=== PATIENT | female | born 1950 | race Caucasian/White ===

== ENCOUNTER 2019-04-05 17:30 | Emergency (ER) | payer MEDICARE, BC ==
--- OUTSIDE RECORDS SUMMARY | 2019-04-05 17:38 | XMS REPORT | Summary of Care ---
:1950 Author Organization [facility] Address [address] [place] [address] Care Team Providers Name Role Phone Adrienne Simon Primary Care Provider Reason for Visit Reason Comments Follow-up No Labs Encounter Details Date Type Department Care Team Description 02/26/2019 Office Visit [facility]ava, Invasive ductal carcinoma of left breast (Primary Dx); Oncology [facility] Agrawal Osteopenia of multiple sites; [address] Osteoporosis of forearm [place] [address] [place] [address] [phone] Allergies Active Allergy Reactions Severity Noted Date Comments Moxatag GI Reaction 05/14/2013 Severe vomiting Bee Sting Swelling Medium 02/26/2019 Red Yeast Rice Extract Hives 05/16/2016 documented as of this encounter (statuses as of 02/26/2019) Medications Medication Sig Dispensed Refills Start Date End Date Status [place]-3 Fatty Acids (FISH Take by 0 Active OIL) 1000 MG Oral Cap mouth. Calcium Carbonate-Vitamin Take by mouth 0 Active D (CALTRATE 600+D PO) FOUR TIMES DAILY. Cholecalciferol (VITAMIN Take by mouth 0 Active D) 400 UNITS Oral Cap DAILY. Garlic 100 MG Oral Tab Take by mouth 0 Active DAILY. ascorbic acid 500 MG Oral Take 500 mg by 0 Active Tab mouth DAILY. amLodipine (NORVASC) 5 MG Take 1 Tab by 90 Tab 3 10/16/2018 Active Oral TabIndications: mouth DAILY. Essential hypertension bisoprolol-hydrochlorothia Take 1 Tab by 90 Tab 3 10/30/2018 Active zide (ZIAC) 5-6.25 MG Oral mouth DAILY. TabIndications: Essential hypertension lisinopril (PRINIVIL, Take 1 Tab by 90 Tab 3 10/30/2018 Active ZESTRIL) 40 MG Oral Tab mouth DAILY. letrozole (FEMARA) 2.5 MG Take 1 Tab by 90 Tab 3 11/09/2018 Active Oral Tab mouth DAILY. hydrochlorothiazide (HCTZ, take 1 capsule 90 Cap 3 12/18/2018 Active ORETIC) 12.5 MG Oral by mouth once CapIndications: Essential daily hypertension documented as of this encounter (statuses as of 02/26/2019) Active Problems Problem Noted Date Invasive ductal carcinoma of left breast 12/13/2015 Overview: Surgery - Radiation - Dr Goddard / [place] - / will follow up with primary care until 5 years- BMI 28.0-28.9,adult 09/14/2014 Overview: This patient's BMI has been calculated and is above average, and BMI management plan is completed. General patient education discussion including: obesity- related excess mortality and is managed by . 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 S/P colonoscopy with polypectomy 08/24/2008 Overview: 03/2004, Dr. Thmoas. Next recommended 3 years. No f/u. Poisoning, glutethimide group documented as of this encounter (statuses as of 02/26/2019) Immunizations Name Administration Dates Next Due Adacel TdaP 03/23/2007 PNEUMOCOCCAL POLYSACCHARIDE VACCINE 10/09/2016 Pneumococcal Conjugate(13 Valent) 09/14/2014 documented as of this encounter Social History Tobacco Use Types Packs/Day Years Used Date Former Smoker Cigarettes 10 Smokeless Tobacco: Never Used Alcohol Use Drinks/Week oz/Week Comments No Sex Assigned at Date Recorded Not on file Job Start Date Occupation Industry Not on file Not on file Not on file Travel History Travel Start Travel End No recent travel history available. documented as of this encounter Last Filed Vital Signs Vital Sign Reading Time Taken Comments Blood Pressure 168/97 02/26/2019 11:01 AM EDT Pulse 66 02/26/2019 11:01 AM EDT Temperature 36.4 02/26/2019 10:58 AM EDT C (97.6 F) Respiratory Rate 14 02/26/2019 10:58 AM EDT Oxygen Saturation - - Inhaled Oxygen Concentration - - Weight 70.5 kg (155 lb 6.4 oz) 02/26/2019 10:58 AM EDT Height 160 cm (5' 3") 02/26/2019 10:58 AM EDT Body Mass Index 27.53 02/26/2019 10:58 AM EDT documented in this encounter Patient Instructions Patient InstructionsTanja Larsen NP - 02/26/2019 11:00 AM EDTReturn appointments timing: - March 2020 with CMP and office visit. No Port/PICC Patient Instructions: - Continue letrozole as prescribed. - Continue calcium and vitamin D supplement. Contact office with any changes or questions: During Business hours: [place] [phone] [place] [phone] After hours/holidays/weekends Call [facility] computer numerical control operator [phone] and ask for oncology salesperson women's dresses If you have an acute emergency call 911 documented in this encounter Progress Notes Tanja Larsen NP - 02/26/2019 11:00 AM EDT 02/26/2019 PATIENT: Ximena Clifton : 1950 Chief Complaint: Subjective HPI: Ximena Clifton is a 68-y.o. female with history of left breast invasive ductal carcinoma currently on letrozole presenting today for follow-up. She was last seen in our clinic in August 2016. That time she was discharged to follow-up with surgery center in [place]. He was referred back to our office by Dr Kenney as there was concern for change in her most recent bone density. Overall she reports that she is feeling well and doing well. She has been on the letrozole since January 2016. She denies recurrent headaches, fevers, night sweats, SOB, chest pain, abdominal pain,change in bowel or bladder function, abnormal bleeding/bruising, swollen or painful lymph nodes, bone pain , fatigue. Appetite is good. Oncologic diagnosis: Breast invasive ductal carcinoma Date of diagnosis: 11/06/2015 Date of diagnosis: Stage IA (pT1a pN0 (i-) Del Cid Features: - ER + 100% - DC + 97% - HER-2 negative - 0/1 SLN Treatment to date: -Left partial mastectomy and sentinel lymph node biopsy on 12/13/2015. -Adjuvant radiation from 01/15/2016 07/04/[address] Goddard at [facility]. -Given endocrine therapy with letrozole from 02/14/16 to present. Past Medical History: Diagnosis Date Elevated HDL 08/24/2008 History of breast surgery left breast ca/pt had lumpectomy with RT History of Right Breast Lump 08/24/2008 S/P biopsy, 1994, benign. Hypertension 08/24/2008 Invasive ductal carcinoma of left breast (HCC) 12/13/2015 [place] Poisoning, glutethimide group Postmenopausal S/P colonoscopy with polypectomy 08/24/200803/2004, Dr. Thomas. Next recommended 3 years. No f/u. Past Surgical History: Procedure Laterality Date CT LOWER EXTREMITY TIB FIB RIGHT DC BIOPSY OF BREAST, INCISIONAL 12/13/2015 Outpatient Medications as of 02/26/2019 Medication Sig Dispense Refill amLodipine (NORVASC) 5 MG Oral Tab Take 1 Tab by mouth DAILY. 90 Tab 3 ascorbic acid 500 MG Oral Tab Take 500 mg by mouth DAILY. bisoprolol-hydrochlorothiazide (ZIAC) 5-6.25 MG Oral Tab Take 1 Tab by mouth DAILY. 90 Tab 3 Calcium Carbonate-Vitamin D (CALTRATE 600+D PO) Take by mouth FOUR TIMES DAILY. Cholecalciferol (VITAMIN D) 400 UNITS Oral Cap Take by mouth DAILY. Garlic 100 MG Oral Tab Take by mouth DAILY. hydrochlorothiazide (HCTZ, ORETIC) 12.5 MG Oral Cap take 1 capsule by mouth once daily 90 Cap3 letrozole (FEMARA) 2.5 MG Oral Tab Take 1 Tab by mouth DAILY. 90 Tab 3 lisinopril (PRINIVIL, ZESTRIL) 40 MG Oral Tab Take 1 Tab by mouth DAILY. 90 Tab 3 [place]-3 Fatty Acids (FISH OIL) 1000 MG Oral Cap Take by mouth. No current facility-administered medications on file as of 02/26/2019. Allergies Allergen Reactions Bee Sting Swelling Amoxicillin [Moxatag] GI Reaction Severe vomiting Red Yeast Rice Extract Hives Social History Socioeconomic History Marital status: Spouse name: Not on file Number of children: Not on file Years of education: Not on file Highest education level: Not on file Occupational History Not on file Social Needs Financial resource strain: Not on file Food insecurity: Worry: Not on file Inability: Not on file Transportation needs: Medical: Not on file Non-medical: Not on file Tobacco Use Smoking status: Former Smoker Years: 10. Types: Cigarettes Smokeless tobacco: Never Used Substance and Sexual Activity Alcohol use: No Drug use: No Sexual activity: Yes Partners: Male Lifestyle Physical activity: Days per week: Not on file Minutes per session: Not on file Stress: Not on file Relationships Social connections: Talks on phone: Not on file Gets together: Not on file Attends episcopalian service: Not on file Active member of club or organization: Not on file Attends meetings of clubs or organizations: Not on file Relationship status: Not on file Intimate partner violence: Fear of current or ex partner: Not on file Emotionally abused: Not on file Physically abused: Not on file Forced sexual activity: Not on file Other Topics Concern Not on file Social History Narrative 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 Objective Vitals: 02/26/19 1101 BP: (!) 168/97 Pulse: 66 Resp: Temp: GENERAL: well-nourished, no acute distress. Ambulatory. ORAL CAVITY: mucous membranes moist without lesions. NECK: supple, no JVD. No thyromegaly. CHEST: clear to auscultation bilaterally, no accessory muscle use. CARDIAC: regular rate and rhythm. ABDOMEN: soft, nondistended, nontender. Normoactive bowel sounds. No organomegaly. NEURO: alert and oriented x3. No gross deficits. EXTREMITIES: No ecchymosis, or pedal edema. LYMPH: cervical and supraclavicular lymph nodes non-palpable. ECOG PS: 0 PAIN LEVEL: 0/10 Laboratory Results: Lab Results Component Value Date WBC 5.86 10/16/2018 RBC 4.41 10/16/2018 HGB 13.5 10/16/2018 HCT 42.1 10/16/2018 MCV 95.5 (H) 10/16/2018 MCH 30.6 10/16/2018 MCHC 32.1 (L) 10/16/2018 PLAT 371 (H) 10/16/2018 MPV 9.8 10/16/2018 RDW 12.5 10/16/2018 LYMPHOCYTEPE 19.1 (L) 10/16/2018 MONOCYTEPE 11.6 10/16/2018 EOSINOPHILPE 0.7 10/16/2018 BASOPHILPE 0.7 10/16/2018 NEUTROPHILAB 3.95 10/16/2018 LYMPHOCYTEAB 1.12 (L) 10/16/2018 MONOCYTEAB 0.68 10/16/2018 EOSINOPHILAB 0.04 10/16/2018 BASOPHILAB 0.04 10/16/2018 Lab Results Component Value Date NA 131 (L) 10/16/2018 K 4.2 10/16/2018 CL 93 (L) 10/16/2018 CO2 25 10/16/2018 GLUCOSE 113 (H) 10/16/2018 BUN 17 10/16/2018 CREATININE 0.6 (L) 10/16/2018 CALCIUM 9.8 10/16/2018 TP 8.4 (H) 10/16/2018 ALBUMIN 4.7 10/16/2018 AST 27 10/16/2018 ALT 26 10/16/2018 ALK 80 10/16/2018 TBILI 0.4 10/16/2018 EGFR >60 10/16/2018 11/05/18 Bilateral Mammogram: Birads 2. 7/02/11 Dexa scan demonstrates normal bone density to the lumbar spine. Left femur with osteopenia, total - 1.5. Right femur borderline at - 1.1. Left forearm radius demonstrates osteoporosis. Assessment Ximena Clifton is a 68-y.o. female with history of left breast invasive ductal carcinoma currently on treatment with anastrozole presenting today for follow up and to discuss bone density results. At this point in review her lumbar spine, left femur, and right femur have remained fairly stable ondexa scan imaging. The only thing demonstrating concern for osteoporosis and worsening bone densityof the left forearm radius. At this point she is taking calcium and vitamin D supplementation and reports that she is getting weightbearing exercises in 2 days a week. She is on the letrozole and hasbeen on that since January 2016. At this point would be looking at continuing that to at least January 2021. Will need to further discuss whether or not we extend her adjuvant endocrine therapy to10 years, given that some people have been show to benefit from taking therapy for 10 years vs 5 years. I discussed bone density options with her to include Fosamax, Prolia, and Reclast. At this point taking bone directed therapy is not something that she is interested in, especially given that for the most part things have remained stable and she is concerned for side effects associated with these therapy options. I have encouraged her to continue calcium and vitamin D supplementation with weightbearing exercises. Repeat bone density scan in the next 1 to 2 years. Her next mammogram is scheduled in October 2019 with follow-up examination of breast surgery at that time. We should see her back next year, in March 2020 , for follow-up. Will look to order bone density scan at that time and further discuss length of time for the adjuvant endocrine therapy Plan -Continue calcium and vitamin D supplementation. -To continue weightbearing exercises. -We will have her return here in March 2020 for CMP and follow-up office visit. -Follow-up with breast surgery with mammogram in October as scheduled. -Advised to call with any questions or concerns. All questions were addressed and answered to satisfaction of the patient. Plan discussed with and agreed upon by patient. Tanja Larsen NP 02/26/2019 16:46 [facility] documented in this encounter Plan of Treatment Date Type Specialty Care Team Description 10/19/2019 Office Visit Internal Medicine Adrienne Simon MD [address] [place] [address] [phone] 11/09/2019 Ancillary Procedure Radiology 11/15/2019 Office Visit General Surgery Jennifer Kenney MD [address] [place] [address] [phone] Health Maintenance Due Date Last Done Comments ZOSTER IMMUNIZATION SERIES 1998 (1 of 2) MEDICARE ANNUAL WELLNESS 10/09/2017 10/09/2016, 10/03/2015, VISIT 09/14/2014 COLONOSCOPY SCREENING 09/21/2018 09/21/2013, 03/29/2004 PAP SMEAR 10/09/2018 10/09/2016, 09/14/2014, 04/09/2011, Additional history exists DEPRESSION SCREENING 10/17/2019 10/16/2018 DIABETES SCREENING 10/17/2019 10/16/2018, 10/15/2017, 11/08/2016, Additional history exists FALL RISK ASSESSMENT 10/17/2019 10/16/2018, 10/16/2018 LIPID DISORDER SCREENING 10/17/2019 10/16/2018, 10/15/2017, 05/09/2011, Additional history exists MAMMOGRAM (SCREENING) 11/06/2019 11/05/2018, 10/28/2017, 10/07/2016, Additional history exists OSTEOPOROSIS SCREENING 12/01/2028 12/01/2018, 01/10/2016, 10/25/2013, Additional history exists HPV IMMUNIZATION SERIES Aged Out No longer eligible based on patient's age to complete this topic MENINGOCOCCAL VACCINE IMM Aged Out No longer eligible based on patient's age to complete this topic documented as of this encounter Goals Goal Patient Goal Associated Recent Patient-Stated? Author Type Problems Progress Blood Pressure Blood Pressure Hypertension 168/97 No [place], < 140/90 (02/26/2019 MD Adrienne 11:01 AM EDT) Note: Hypertension Care Plan Based on the patient's clinical history and according to JNC 8 guidelines target blood pressure goal is less than 140/90. Based on the patient's last blood pressure of BP: 142/84 mmHg the patient is at at goal. As your provider, it is important that I advise you regarding: your current medications and help you with any challenges you may face taking your medications as directed (ex. instructions, cost, side effects, and interactions). Important lifestyle changes: exercise, weight reduction, diet, dietary sodium reduction and medication compliance your clinical goals and how you can achieve success: weight reduction, exercise plan and diet improvements medication management: adjusted medications as appropriate patient education/self-management tools provided: Yes To successfully manage my Hypertension I will: monitor my blood pressure daily, understanding that my goal is less than 140/ 90 per my healthcare provider's recommendation. I will schedule an appointment with my provider if consistent abnormal readings greater than 160/100. take medications every day as prescribed by my healthcare provider and if unable to take them I will discuss with my provider. monitor for symptoms of chest pain, chest tightness/pressure, irregular heartbeat, persistent dizziness, radiating arm pain, and neck or jaw pain. If any of these symptoms are noticed I will seek medical attention immediately by calling 911 exercise/walk 45 minutes 4 day(s) per week. If I experience chest pain, chest tightness, or shortness of breath, I will seek medical attention immediately. follow a diet rich in fruits, vegetables, and low-fat dairy products with reduced content of saturated & total fat. I will reduce my sodium intake daily. An example is the DASH diet. To obtain more information please refer to the DASH Eating Plan listed in Educational Resources. record my blood pressure results. Zoran is safe and secure way for you to do this in your medical record online. try to obtain an ideal body weight. My recent weight was Weight: 159 lb ( 72.122 kg). My weight loss goal for my next office visit is 5-7 lbs . limit alcohol consumption. For men two drinks per day and women one drink per day. if currently smoking, will discuss how to quit smoking with my healthcare provider and work towards quitting. Educational Resources: National Heart, Lung, & Blood [place] http://nhlbi.nih.gov/hbp/index.html The DASH Diet Eating Plan http://www.nhlbi.nih.gov/health/health-topics/ topics/dash/ Academy of Nutrition & DIetetics http://eatright.org National Smoking Cessation Site http://smokefree.gov Blood Pressure < 150/90 Blood Pressure 168/97 (02/26/2019 11:01 Adrienne Arrieta MD AM EDT) Note: This is an individualized treatment (blood pressure) goal for Ximena Clifton: Displayed above (on the left) is your goal for blood pressure control. Your most recent blood pressure is also shown above, on the right. You should try to achieve blood pressures that are lower than your goal listed above (on the left). Take all prescribed medications as directed Self-management Adrienne Arrieta MD Note: This is an individualized self-management goal for Ximena Villasenor Clifton: Please take all prescribed medications as directed. 1. Do not skip doses. If you cannot afford your medications, talk with your doctor. 2. Use a pill reminder system such as a pill box if needed. Your pharmacist can help you with this. 3. Contact your Pharmacy 5 days before your medication runs out. If you cannot take your medications for any reasons, talk with your doctor. 4. Please bring all of your medication bottles and inhalers (or a list of all your medications/inhalers) with you to every visit. Potential barriers to meeting all of your care plan goals will continue to be addressed on an ongoing basis. documented as of this encounter Results Not on filedocumented in this encounter Visit Diagnoses Diagnosis Invasive ductal carcinoma of left breast - Primary Osteopenia of multiple sites Osteoporosis of forearm documented in this encounter Insurance Payer Benefit Plan / Subscriber ID Effective Dates Phone Address Type Group MEDICARE MEDICARE PART A & xxxxxxxxxxx 2013-Present Medicare B [employer] xxxxxxxxxxxx 2013-Present [employer] Guarantor Name Account Type Relation to Date of Phone Billing Patient Address Ximena Clifton Personal/Family [address] [facility] [place] (Home) [place] [phone] [place], [place] (Work) [id number] documented as of this encounter
[2019-04-05 17:46] VITALS: BP 166/100
--- NOTE | 2019-04-05 18:14 | UC ---
Bite Injury/Animal HPI - HPI Summary HPI Summary: 68 y/o female presents to the urgent care c/o dog bite on her left palm hand at the [facility] today around 1615pm. 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 She was taken a pittbull to walk when an outside keo came close and the dog redirected towards her and bit her left hand. Dog is UTD in all immunizations and she also notified the Health department who advised her to come here. Pt states she irrigated her hand well and bleeding stopped w / pressure. Pain is 1/10 at touch and she can move her hand and fingers w/o any difficulty. Pt is not UTD w/ the tetanus vaccine. Pt denies fever, SOB, dizziness, chest pain, swelling, abdominal pain, N/V/D. - History of Current Complaint Chief Complaint: UCBiteInjury Stated Complaint: DOG BITE Time Seen by Provider: 04/05/19 18:07 Hx Obtained From: Patient ?: No - menopausal Severity Currently: Moderate Severity Initially: Moderate Pain Intensity: 1 Pain Scale Used: 0-10 Numeric Onset/Duration: Sudden Onset, Lasting Hours - 2 hrs ago, Still Present Type of Bite: Animal - dog bite from [facility] Has Animal Been Immunized?: Yes Character: Puncture - dorsal side of the left hand, Abrasion/Laceration - palmar side of the left hand over the thenar eminence Aggravating Factor(s): Other - touch Alleviating Factor(s): Rest Associated Signs And Symptoms: Positive: Negative. Negative: Fever, Lymphadenopathy, Numbness/Tingling, Limited ROM Hx of Bite: Provoked by: - Pt was walking the dog and a outside keo came close and the dog redirected towars her and bit her left hand Animal Available for Observation: Yes Animal Control Notified: Yes - Risk Factors Infection/Sepsis Risk Factors: Negative - Allergies/Home Medications Allergies/Adverse Reactions: Allergies Allergy/AdvReac Type Severity Reaction Status Date / Time amoxicillin Allergy Diarrhea Verified 04/05/19 17:46 RED RICE YEAST Allergy Severe Hives Uncoded 05/02/12 14:49 PMH/Surg Hx/FS Hx/Imm Hx Previously Healthy: Yes Cardiovascular History: Hypertension - Surgical History Surgical History: None Surgery Procedure, Year, and Place: lumpectomy. tibial plateau right - Family History Known Family History: Positive: Diabetes - Social History Occupation: Retired Lives: With Family Alcohol Use: Daily Substance Use Type: None Smoking Status (MU): Never Smoked Tobacco When Did the Patient Quit Smoking/Using Tobacco: 40 years ago - Immunization History Hx Tetanus, Diphtheria Vaccination: No - Pt can't recall when was the last Tetanus vaccine Review of Systems All Other Systems Reviewed And Are Negative: Yes Constitutional: Positive: Negative Skin: Positive: Other - left hand dog bite about 2 hrs ago Eyes: Positive: Negative ENT: Positive: Negative Respiratory: Positive: Negative Cardiovascular: Positive: Negative Gastrointestinal: Positive: Negative Genitourinary: Positive: Negative Motor: Positive: Negative Neurovascular: Positive: Negative Musculoskeletal: Positive: Other: - left hand pain s/p dog bite Neurological: Positive: Negative Psychological: Positive: Negative Is Patient Immunocompromised?: No Physical Exam - Summary Physical Exam Summary: Vital Signs Reviewed: Yes General: well developed, well nourished female sitting in the examining table w/ o any apparent distress Eye Exam: Normal Eyes: Positive: Conjunctiva Clear - PERRLA, EOMI, fundi grossly normal ENT: Positive: Normal ENT inspection, Hearing grossly normal, Pharynx normal, TMs normal Neck: Positive: Supple, Nontender, No Lymphadenopathy Respiratory: Positive: Chest non-tender, Lungs clear, Normal breath sounds, No respiratory distress Cardiovascular: Positive: RRR, No Murmur, Pulses Normal, Brisk Capillary Refill Abdomen Description: Positive: Nontender, No Organomegaly, Soft. Negative: CVA Tenderness (R), CVA Tenderness (L) Bowel Sounds: Positive: Present Musculoskeletal: Positive: Strength Intact, ROM Intact, No Edema Neurological: Positive: Alert, Muscle Tone Normal Psychological Exam: Normal Skin: Positive: Palmar side of left hand w/ an 3 irregular linear superficial skin avulsions and abrasions over the thenar eminence about 2.5cm in size, bleeding, no foreign body observed. One puncture wound on the dorsal side of the mid 4th metacarpal w/mild tenderness to palpation and swelling, no ecchymosis around hand. FROM of RT hand and wrist, sensation intact, capillary refill brisk, and pulses WNL. Triage Information Reviewed: Yes Vital Signs: Initial Vital Signs Temp 99.7 F 04/05/19 17:38 Pulse 105 04/05/19 17:38 Resp 16 04/05/19 17:38 BP 166/100 04/05/19 17:38 Pulse Ox 100 04/05/19 17:38 Bite Injury Course/Dx - Course Course Of Treatment: 68 y/o female presents to the urgent care c/o dog bite on her left palm hand at the [facility] today around 1615pm. 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 She was taken a pittbull to walk when an outside keo came close and the dog redirected towards her and bit her left hand. Dog is UTD in all immunizations and she also notified the Health department who advised her to come here. Pt states she irrigated her hand well and bleeding stopped w / pressure. Pain is 4/10 at touch and she can move her hand and fingers w/o any difficulty. Pt is not UTD w/ the tetanus vaccine. Pt denies fever, SOB, dizziness, chest pain, swelling, abdominal pain, N/V/D. Hx obtained. Pt is hemodynamically, A&OX3, vitals: WNL. Pt w/ a Palmar side of left hand w/ an 3 irregular linear superficial skin avulsions and abrasions over the thenar eminence about 2.5cm in size, bleeding, no foreign body observed. One puncture wound on the dorsal side of the mid 4th metacarpal w/mild tenderness to palpation and swelling, no ecchymosis around hand. FROM of RT hand and wrist, sensation intact, capillary refill brisk, and pulses WNL on examination. Pt is hemodynamically stable, A&OX3,. Left hadn X-ray ordered to r/o any FB or abnormality, Impression: Negative for fracture or dislocation or FB as per DR Adamson. Pt told final radiolgy reports will be done tomorrow if there is any abnormality. LACERATION PROCEDURE NOTE: . Copious irrigation was done with saline and the wound explored. There was no FB or deep structure injury noted. wound cleaned w/ Iodine swabs. skin avulsions put in placed and Bacitracin oint applied over wounds and dressed w/ sterile gauze.The Pt tolerated the procedure well without adverse effects. Neurovascular intact and FROM of left hand. Tdap ordered and applied by nurse. Pt is allergic to Amoxiccillin, Pt Rx Clindamycin PO and Doxycycline PO as directed below. Pt advised if any signs of infection develop to go immediately to the ER for further management and treatment.Pt's BP is elevated today advised to decrease salt in diet, monitor BP and f/u with PCP for further management. Pt understood and agreed and left the clinic ambulating A&Ox3. - Differential Dx/Diagnosis Differential Diagnosis/HQI/PQRI: Cellulitis, Laceration, Puncture, Rabies Exposure, Superficial Infection, Deep Space Infection, Tenosynovitis Provider Diagnosis: Open wound of left hand due to dog bite, Uncontrolled hypertension Discharge ED - Sign-Out/Discharge Documenting (check all that apply): Patient Departure - D/C home All imaging exams completed and their final reports reviewed: No - Discharge Plan Condition: Stable Disposition: HOME Prescriptions: Bacitracin OINTMENT* 1 applic TOPICAL BID #1 tube Clindamycin Cap(NF) [Clindamycin Cap 300 mg Cap(NF)] 300 mg PO Q6H #40 cap DOXYcycline CAP(*) [DOXYcycline 100MG CAP(*)] 100 mg PO BID #20 cap Patient Education Materials: Animal Bite (ED), Puncture Wound (DC) Referrals: Adrienne Simon MD [Primary Care Provider] - 3 Days Additional Instructions: 1-Please take full course of both antibiotics as directed to prevent infection form the dog bite. Take yogurt w/ probiotics or Culturelle to protect your GI system. 2-apply Bacitracin topical antibiotic over the wound. Keep wound clean and dry and apply ice to decrease swelling and keel hand elevated w/ the shoulder sling. Please apply Bacitracin oint as directed to prevent infection 3- You were given a booster of Tetanus vaccine today 4-Take Ibuprofen or Tylenol PO q6-8hrs prn for pain or swelling. 5- If you develop fever or severe redness around your hand despite antibiotics please go immediately to the ER for further management. Your BP is elevated today. Please take your BP medications and decrease salt in your diet, monitor BP and if it continues to be elevated please f/u with your PCP for further management. If you develop chest pain, dizziness, visual disturbances, SOB, or severe GUERRA please go immediately to the ER for further management - Billing Disposition and Condition Condition: STABLE Disposition: Home - Attestation Statements Provider Attestation: This patient was not seen by me I was available for consult Chart reviewed DANIEL
[2019-04-05] MEDS ORDERED: Tetan/Diph/Pertus SYR(Tdap)* 0.5 ML SYR(BOOSTRIX) use SYR contains LATEX IM ONE (18:24)
--- NOTE | 2019-04-06 14:54 | UC ---
- Progress Note Progress Note: RADIOLOGY REPORT REVIEWED. SOFT TISSUE INJURY. IN ADDITION THERE IS SUGGESTION OF A SMALL CALCIFIC DENSITY IN THE SUPERFICIAL SOFT TISSUES POSSIBLY REPRESENTING A FOREIGN BODY LESS LIKELY A BONE FRAGMENT. PLS CALL PT AND BE SURE SHE HAS PCP F/U IN 3 DAYS ADVISED. SHE MAY NEED ORTHOPEDIC FOLLOW-UP. Course/Dx - Diagnoses Provider Diagnoses: Open wound of left hand due to dog bite, Uncontrolled hypertension Discharge ED - Sign-Out/Discharge Documenting (check all that apply): Post-Discharge Follow Up All imaging exams completed and their final reports reviewed: Yes - Discharge Plan Condition: Stable Disposition: HOME Prescriptions: Bacitracin OINTMENT* 1 applic TOPICAL BID #1 tube Clindamycin Cap(NF) [Clindamycin Cap 300 mg Cap(NF)] 300 mg PO Q6H #40 cap DOXYcycline CAP(*) [DOXYcycline 100MG CAP(*)] 100 mg PO BID #20 cap Patient Education Materials: Animal Bite (ED), Puncture Wound (DC) Referrals: Adrienne Simon MD [Primary Care Provider] - 3 Days Additional Instructions: 1-Please take full course of both antibiotics as directed to prevent infection form the dog bite. Take yogurt w/ probiotics or Culturelle to protect your GI system. 2-apply Bacitracin topical antibiotic over the wound. Keep wound clean and dry and apply ice to decrease swelling and keel hand elevated w/ the shoulder sling. Please apply Bacitracin oint as directed to prevent infection 3- You were given a booster of Tetanus vaccine today 4-Take Ibuprofen or Tylenol PO q6-8hrs prn for pain or swelling. 5- If you develop fever or severe redness around your hand despite antibiotics please go immediately to the ER for further management. Your BP is elevated today. Please take your BP medications and decrease salt in your diet, monitor BP and if it continues to be elevated please f/u with your PCP for further management. If you develop chest pain, dizziness, visual disturbances, SOB, or severe GUERRA please go immediately to the ER for further management - Billing Disposition and Condition Condition: STABLE Disposition: Home
== END 2019-04-05 19:25 | disposition home or self-care (01) ==
LOC: UCEAST 17:30
DX: S61.452A Open bite of left hand, initial encounter (principal); W54.0XXA Bitten by dog, initial encounter; Y93.89 Activity, other specified; Y92.89 Other specified places as the place of occurrence of the external cause; Y99.2 Volunteer activity; Z23 Encounter for immunization; I10 Essential (primary) hypertension; Z88.0 Allergy status to penicillin; Z87.891 Personal history of nicotine dependence
CPT/HCPCS: 90471; 90715; 99212; G0463